=== PATIENT | female | born 1940 | race Caucasian/White ===

== ENCOUNTER 2022-02-24 05:10 | Inpatient (IN) ==
[2022-02-24] MEDS ORDERED: NALOXONE 0.4 MG/ML VIAL ONE (05:40)
[2022-02-24] MEDS ORDERED: ONDANSETRON 4 MG/2 ML VIAL IV STA (05:41)
[2022-02-24] MEDS ORDERED: methylPREDNISolone SOD SUC 125 MG/2 ML VIAL IV STA (05:41)
[2022-02-24] MEDS ORDERED: ALBUTEROL/IPRATROPIUM 3 ML NEB RESP TX STA (05:41)
[2022-02-24] MEDS ORDERED: NALOXONE 0.4 MG/ML VIAL IV STA (05:42)
[2022-02-24] MEDS ORDERED: ALBUTEROL NEB SOLN 5 MG/ML 20 ML/BOTTLE CONT NEB SCH (06:00)
[2022-02-24 06:02] LABS: Arterial Base Excess iSTAT -10 MMOL/L (-2.5-2.5); Arterial O2 Saturation iSTAT 51 % (95-100); Arterial PCO2 iSTAT 57 MM HG (35-48); Arterial PO2 iSTAT 36 MM HG (80-95); Arterial Total CO2 iSTAT 21 MMO/L (23-27); Arterial pH iSTAT 7.135 (7.35-7.45)
[2022-02-24 06:03] LABS: Basophils % 0.2 % (0.0-0.8); Eosinophils % 0.1 % (0.00-10.9); Hematocrit 31.9 VOL% (35.7-47.0); Hemoglobin 10.2 GM/DL (12.0-16.0); Immature Granulocytes % 0.7 %; Immature Granulocytes Absolute 0.07 #; Lymphocytes # 0.3 10*3/uL (1.4-4.0); Lymphocytes % 2.7 % (21.3-54.2); Mean Corpuscular Volume 98.2 FL (87-102); Mean Platelet Volume 11.7 FL (9.6-12.0); Monocytes # 0.5 10*3/uL (0.11-0.8); Monocytes % 4.7 % (1.7-12.7); NRBC # 0.02 10*3/uL; Neutrophils % 91.6 % (38.7-73.9); Platelet Count 116 T/CUMM (130-400); Red Blood Count 3.25 MC/CUMM (3.8-5.5); Red Cell Distribution Width 17.1 % (9.3-17.3)
[2022-02-24] MEDS ORDERED: NOREPINEPHRINE 4 MG/4 ML VIAL IV ONE (06:26)
[2022-02-24] MEDS ORDERED: MIDAZOLAM 100 MG in SODIUM CHLORIDE 0.9% 80 ML IV PRN (06:27)
[2022-02-24 06:28] LABS: Band Neutrophils 2 % (0-10); Lymphocytes 2 % (20-55); Macrocytosis Slight; Total Cells Counted 100
[2022-02-24] MEDS: NOREPINEPHRINE 8 MG in SODIUM CHLORIDE 0.9% 242 ML IV PRN ×2 (06:30→18:19)
[2022-02-24] MEDS ORDERED: SODIUM CHLORIDE 0.9% 1,000 ML IV STA (06:32)
[2022-02-24] MEDS ORDERED: ETOMIDATE 20 MG/10 ML VIAL IV ONE (06:34)
[2022-02-24] MEDS ORDERED: ROCURONIUM 100 MG/10 ML VIAL IV ONE (06:34)
[2022-02-24 06:56] LABS: Albumin 2.8 G/DL (3.4-5.0); Bilirubin,Total 7.7 MG/DL (0.20-1.00); Calcium 9.8 MG/DL (8.5-10.1); Osmolality,Calculated 329.8 MOS/KG (273-304); Total Protein 5.8 G/DL (6.4-8.2)
[2022-02-24 06:56] LABS: Arterial Base Excess iSTAT -11 MMOL/L (-2.5-2.5); Arterial Bicarbonate iSTAT 20.5 MMOL/L (20-26); Arterial O2 Saturation iSTAT 100 % (95-100); Arterial PCO2 iSTAT 74 MM HG (35-48); Arterial PO2 iSTAT 593 MM HG (80-95); Arterial Total CO2 iSTAT 23 MMO/L (23-27); Arterial pH iSTAT 7.048 (7.35-7.45)
[2022-02-24 07:05] LABS: Potassium 6.1 MMOL/L (3.5-5.1)
[2022-02-24] MEDS ORDERED: DEXTROSE 50% 25 GM/50 ML VIAL IV STA (07:57)
[2022-02-24] MEDS ORDERED: INSULIN REGULAR 100 UNIT/ML IV STA (07:57)
[2022-02-24] MEDS ORDERED: CALCIUM CHLORIDE 1,000 MG/10 ML SYRINGE IV STA (07:58)
[2022-02-24] MEDS ORDERED: SODIUM BICARBONATE 50 MEQ/50 ML VIAL IV STA (07:58)
[2022-02-24 08:08] LABS: PT Patient Result 106.1 SECS (10.1-12.1); Partial Thromboplastin Time 65.2 SECS (23.7-32.9)
[2022-02-24 08:11] LABS: INR 11.5
[2022-02-24] MEDS ORDERED: SODIUM CHLORIDE 0.9% 1,000 ML IV PRN (08:38)
[2022-02-24] MEDS ORDERED: PROTHROMBIN COMPLEX IV ONE (09:00)
[2022-02-24] MEDS ORDERED: LACTATED RINGERS 1,000 ML IV ONE (10:55)
[2022-02-24] MEDS ORDERED: MEROPENEM 500 MG in SODIUM CHLORIDE 0.9% 100 ML IV ONE (10:55)
[2022-02-24] MEDS ORDERED: MORPHINE 2 MG/1 ML SYRINGE IV PRN (10:57)
[2022-02-24] MEDS ORDERED: ALBUTEROL 2.5 MG/3 ML NEB RESP TX PRN (10:57)
[2022-02-24] MEDS ORDERED: ONDANSETRON 4 MG/2 ML VIAL IV PRN (10:57)
[2022-02-24] MEDS: ENOXAPARIN 30 MG/0.3 ML SYRINGE SUBCUT SCH (11:42)
[2022-02-24] MEDS: PANTOPRAZOLE 40 MG VIAL IV SCH (12:30)
[2022-02-24] MEDS ORDERED: INFLUENZA VIRUS VACCINE 0.5 ML SYRINGE IM ONE (13:34)
[2022-02-24] MEDS: methylPREDNISolone SOD SUC 40 MG/1 ML VIAL IV SCH ×2 (14:00→21:52)
[2022-02-24 14:28] LABS: Arterial Base Excess iSTAT -3 MMOL/L (-2.5-2.5); Arterial Bicarbonate iSTAT 28.4 MMOL/L (20-26); Arterial O2 Saturation iSTAT 100 % (95-100); Arterial PCO2 iSTAT 92 MM HG (35-48); Arterial PO2 iSTAT 608 MM HG (80-95); Arterial Total CO2 iSTAT 31 MMO/L (23-27); Arterial pH iSTAT 7.099 (7.35-7.45)
[2022-02-24 14:53] LABS: Basophils % 0.1 % (0.0-0.8); Hematocrit 29.7 VOL% (35.7-47.0); Hemoglobin 9.7 GM/DL (12.0-16.0); Immature Granulocytes % 0.4 %; Immature Granulocytes Absolute 0.03 #; Lymphocytes # 0.2 10*3/uL (1.4-4.0); Lymphocytes % 2.8 % (21.3-54.2); Mean Corpuscular HGB Conc 32.7 GM/DL (32-36); Mean Corpuscular Volume 96.7 FL (87-102); Mean Platelet Volume 10.8 FL (9.6-12.0); Monocytes # 0.3 10*3/uL (0.11-0.8); Monocytes % 4.1 % (1.7-12.7); NRBC # 0.02 10*3/uL; Neutrophils % 92.6 % (38.7-73.9); Platelet Count 105 T/CUMM (130-400); Red Blood Count 3.07 MC/CUMM (3.8-5.5); Red Cell Distribution Width 17.4 % (9.3-17.3); White Blood Count 8.3 T/CUMM (4-12)
[2022-02-24 15:06] LABS: Calcium 9.7 MG/DL (8.5-10.1); Osmolality,Calculated 335.8 MOS/KG (273-304); Potassium 5.8 MMOL/L (3.5-5.1)
[2022-02-24 15:20] LABS: Band Neutrophils 20 % (0-10); Lymphocytes 2 % (20-55); Total Cells Counted 100
[2022-02-24 15:21] LABS: Platelet Estimate Decreased
[2022-02-24 16:15] LABS: Arterial Base Excess iSTAT -2 MMOL/L (-2.5-2.5); Arterial Bicarbonate iSTAT 24.6 MMOL/L (20-26); Arterial O2 Saturation iSTAT 99 % (95-100); Arterial PCO2 iSTAT 49 MM HG (35-48); Arterial PO2 iSTAT 171 MM HG (80-95); Arterial Total CO2 iSTAT 26 MMO/L (23-27); Arterial pH iSTAT 7.311 (7.35-7.45)
[2022-02-24] MEDS ORDERED: SODIUM CHLORIDE 0.9% 500 ML IV ONE (20:45)
[2022-02-24] MEDS ORDERED: ALBUMIN 5% 12.5 GM/250 ML VIAL IV ONE (20:45)
[2022-02-25] MEDS ORDERED: DEXTROSE 50% 25 GM/50 ML SYRINGE IV ONE ×2 (00:51→00:55)
[2022-02-25] MEDS ORDERED: CALCIUM CHLORIDE 1,000 MG/10 ML SYRINGE IV ONE (00:55)
[2022-02-25] MEDS ORDERED: EPINEPHrine 1 MG/10 ML SYRINGE IV ONE (00:55)
[2022-02-25] MEDS ORDERED: MAGNESIUM SULFATE 1 GM/2 ML VIAL IV ONE (00:55)
[2022-02-25] MEDS ORDERED: SODIUM BICARBONATE 50 MEQ/50 ML SYRINGE IV ONE (00:55)
[2022-02-25 01:30] LABS: ABG Base Excess -5.9 MMOL/L (-2.5-2.5); ABG HCO3 19.5 MMOL/L (20-26); ABG Oxygen Saturation 98.6 % (95-100); ABG PH 7.291 (7.35-7.45); ABG TCO2 19.1 MMOL/L (23-27)
[2022-02-25 01:32] LABS: Basophils % 0.1 % (0.0-0.8); Hematocrit 23.5 VOL% (35.7-47.0); Immature Granulocytes % 0.8 %; Immature Granulocytes Absolute 0.06 #; Lymphocytes # 0.2 10*3/uL (1.4-4.0); Lymphocytes % 2.9 % (21.3-54.2); Mean Platelet Volume 11.7 FL (9.6-12.0); Monocytes # 0.2 10*3/uL (0.11-0.8); NRBC # 0.06 10*3/uL; Neutrophils % 93.2 % (38.7-73.9); Platelet Count 76 T/CUMM (130-400); Red Cell Distribution Width 16.4 % (9.3-17.3); White Blood Count 7.6 T/CUMM (4-12)
[2022-02-25 01:45] LABS: PT Patient Result 21.2 SECS (10.1-12.1); Partial Thromboplastin Time 39.6 SECS (23.7-32.9)
[2022-02-25] MEDS: NOREPINEPHRINE 8 MG in SODIUM CHLORIDE 0.9% 242 ML IV PRN ×3 (01:47→10:41)
[2022-02-25 01:54] LABS: Albumin 2.6 G/DL (3.4-5.0); Bilirubin,Total 5.4 MG/DL (0.20-1.00); Calcium 9.9 MG/DL (8.5-10.1); Osmolality,Calculated 344.5 MOS/KG (273-304); Total Protein 5.1 G/DL (6.4-8.2)
[2022-02-25 01:56] LABS: Potassium 6.6 MMOL/L (3.5-5.1)
[2022-02-25 02:06] LABS: Band Neutrophils 4 % (0-10); Lymphocytes 3 % (20-55); Nucleated Red Blood Cells 3 /100 WBC (0-5); Platelet Estimate Decreased; Total Cells Counted 100
[2022-02-25] MEDS ORDERED: INSULIN REGULAR 10 UNIT, CALCIUM GLUCONATE 1,000 MG in DEXTROSE 10% 250 ML IV ONE ×2 (02:09→03:00)
[2022-02-25] MEDS ORDERED: SODIUM BICARBONATE 50 MEQ/50 ML VIAL IV ONE ×2 (02:26→02:51)
[2022-02-25 04:20] LABS: ABG Base Excess -4.3 MMOL/L (-2.5-2.5); ABG HCO3 20.8 MMOL/L (20-26); ABG Oxygen Saturation 98.7 % (95-100); ABG PCO2 43.3 MM HG (35-48); ABG PH 7.309 (7.35-7.45); ABG TCO2 20.4 MMOL/L (23-27); Allen Test Positive; Pt O2 Delivery Device Ventilator
[2022-02-25 04:58] LABS: Basophils % 0.1 % (0.0-0.8); Hematocrit 25.5 VOL% (35.7-47.0); Hemoglobin 8.6 GM/DL (12.0-16.0); Immature Granulocytes % 0.4 %; Immature Granulocytes Absolute 0.04 #; Lymphocytes # 0.1 10*3/uL (1.4-4.0); Lymphocytes % 1.2 % (21.3-54.2); Mean Corpuscular HGB Conc 33.7 GM/DL (32-36); Mean Corpuscular Volume 94.1 FL (87-102); Mean Platelet Volume 11.6 FL (9.6-12.0); Monocytes # 0.4 10*3/uL (0.11-0.8); Monocytes % 4.7 % (1.7-12.7); Neutrophils % 93.6 % (38.7-73.9); Platelet Count 85 T/CUMM (130-400); Red Blood Count 2.71 MC/CUMM (3.8-5.5); Red Cell Distribution Width 16.7 % (9.3-17.3); White Blood Count 9.4 T/CUMM (4-12)
[2022-02-25 05:16] LABS: Calcium 9.8 MG/DL (8.5-10.1); Osmolality,Calculated 339.4 MOS/KG (273-304)
[2022-02-25 05:18] LABS: Potassium 6.2 MMOL/L (3.5-5.1)
[2022-02-25 05:36] LABS: Band Neutrophils 3 % (0-10); Lymphocytes 1 % (20-55); Platelet Estimate Decreased; Target Cells Few; Total Cells Counted 100
[2022-02-25] MEDS ORDERED: SODIUM POLYSTYRENE SULFATE 15 GM/60 ML BOTTLE PO ONE (06:02)
[2022-02-25] MEDS: methylPREDNISolone SOD SUC 40 MG/1 ML VIAL IV SCH (06:25)
[2022-02-25] MEDS: ENOXAPARIN 30 MG/0.3 ML SYRINGE SUBCUT SCH (10:17)
[2022-02-25] MEDS: PANTOPRAZOLE 40 MG VIAL IV SCH (10:18)
[2022-02-25] MEDS ORDERED: ZINC OXIDE PASTE 113 GM TUBE TOP PRN (12:56)
[2022-02-25 14:34] VITALS: BP 0/0
[2022-02-25] MEDS ORDERED: SODIUM ZIRCONIUM CYCLOSILICATE 10 GM PACK PER TUBE SCH (15:00)
== END 2022-02-25 13:48 | disposition expired | DRG 208 ==
LOC: N.ED 05:10 → N.EDINP 10:27 → N.ICU 11:48
PROVIDERS: ADMIT Internal Medicine; ATTEND Internal Medicine